=== PATIENT | female | born 1960 | race Hispanic/Latino ===

== ENCOUNTER 2017-05-14 12:41 | Emergency (ER) | payer MEDICAID ==
[2017-05-14 13:05] VITALS: BP 129/90
== END 2017-05-14 17:24 | disposition left against medical advice (07) ==
LOC: ED 12:41
DX: Z53.21 Procedure and treatment not carried out due to patient leaving prior to being seen by health care provider (principal)

== ENCOUNTER 2019-05-18 02:17 | Emergency (ER) | payer OTHER, MEDICAID ==
[2019-05-18 02:27] VITALS: BP 151/94
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
== END 2019-05-18 04:14 | disposition home or self-care (01) ==
LOC: ED 02:17
DX: S16.1XXA Strain of muscle, fascia and tendon at neck level, initial encounter (principal); S39.012A Strain of muscle, fascia and tendon of lower back, initial encounter; I10 Essential (primary) hypertension; F17.200 Nicotine dependence, unspecified, uncomplicated; F12.10 Cannabis abuse, uncomplicated; Z79.899 Other long term (current) drug therapy; V87.7XXA Person injured in collision between other specified motor vehicles (traffic), initial encounter; Y93.89 Activity, other specified; Y92.488 Other paved roadways as the place of occurrence of the external cause; Y99.8 Other external cause status
CPT/HCPCS: 72040; 72100; 99283